=== PATIENT | male | born 1995 | race Caucasian/White ===

== ENCOUNTER 2019-05-21 11:54 | Outpatient (CLI) | payer SELFPAY ==
[2019-05-21 12:39] LABS: Basophils % 0.4 %; Eosinophils # 0.1 10^3/uL (0.0-0.8); Eosinophils % 0.9 %; Hematocrit 40.6 % (42.0-52.0); Lymphocytes # 0.6 10^3/uL (0.8-4.8); Lymphocytes % 10.5 %; Mean Corpuscular HGB Conc 34.5 g/dL (30.0-36.0); Mean Corpuscular Hemoglobin 30.9 pg (28.0-34.0); Mean Corpuscular Volume 89.6 fL (80-94); Mean Platelet Volume 9.5 fL (7.4-10.4); Monocytes # 0.9 10^3/uL (0.2-0.9); Monocytes % 15.7 %; Neutrophils # 3.9 10^3/uL (1.8-7.7); Neutrophils % 72.3 %; Nucleated Red Blood Cells % 0 %; Platelet Count 158 10^3/cmm (130-400); Red Blood Count 4.53 10^6/uL (4.1-5.3); Red Cell Distribution Width 12.2 % (12.1-15.1); White Blood Count 5.4 10^3/uL (4.0-10.0)
[2019-05-21 12:46] LABS: Alanine Aminotransferase 17 U/L (0-41); Albumin Level 5.1 g/dL (3.5-5.2); Alkaline Phosphatase 42 IU/L (40-130); Anion Gap 14.9 (5-19); Aspartate Amino Transferase 20 U/L (0-40); Blood Urea Nitrogen 10 mg/dL (6-20); Calcium 9.9 mg/dL (8.5-10.5); Carbon Dioxide 28 mmol/L (22-29); Chloride 97 mmol/L (98-107); Globulin 2.5 g/dL (1.3-4.6); Glomerular Filtration Rate 104.6 mL/min (90-130); Glucose 80 mg/dL (74-109); Lactate Dehydrogenase 146 U/L (135-225); Potassium 3.9 mmol/L (3.5-5.1); Sodium 136 mmol/L (136-145); Total Bilirubin 1.1 mg/dL (0.15-1.2); Total Protein 7.6 g/dL (6.6-8.7)
--- NOTE | 2019-05-21 22:36 | ONC FU_ITS ---
Dr. Rossi Patient Follow-Up Note Patient: Leland Sood Unit #: [id number]: 1995 Dicatated By: Rodolfo Rossi M.D.Date of Visit:May 21, 2019 Onc Med Follow-up/Prog Note Chief Complaint: Hodgkin's lymphoma. History of Present Illness: This is a 24 year-old man with classical Hodgkin lymphoma, nodular sclerosing subtype, stage IVB. On 12/18/2016 he had presented to the emergency room to the [facility] with swollen lymph nodes in his neck. He complained of pain in his neck and back, fatigue, and weight loss. He had first become aware of a small knot in his neck about a year earlier. The adenopathy had just been gradually progressing since then. He also complained of significant fatigue, and he also reported weight loss, night sweating, and severe itching. CT of the neck showed extensive bilateral lymphadenopathy throughout the neck and supraclavicular fossa with a small amount of peripheral edema. There was mild prominence of adenoids and tonsils. Salivary glands were noted to be mildly enlarged and heterogeneous. CT scans of the chest, abdomen, and pelvis showed additional AP window and subcarinal adenopathy measuring 1.8 cm. There was bilateral hilar adenopathy, right greater than left, with the largest conglomeration in the right hilar area measuring 3.8 x 2.8 cm. A rounded configuration of soft tissue in the anterior mediastinum measuring 2.4 x 2.8 cm was felt to be more consistent with adenopathy versus residual thymic tissue. Multiple small pulmonary nodules were noted bilaterally. The liver and spleen were both mildly enlarged, but without focal lesions. There was central retroperitoneal lymphadenopathy, the largest in the left periaortic area measuring 1.6 x 2.3 cm. Normal-sized mesenteric lymph nodes were present and normal sized inguinal lymph and iliac nodes were also noted. His CBC showed elevated white blood cell count at 21,600 with differential showing 76% neutrophils, 8% lymphocytes, and 9% monocytes. Hemoglobin decreased at 10.6 g and platelet count normal 372,000. The red cell indices were normal. Renal function was normal BUN 16 and creatinine 0.7 mg/dL. Albumin was slightly low at 3.1 g/dL. Bilirubin and liver enzymes were normal. He declined hospital admission. I was contacted by the emergency room physician to arrange outpatient follow-up. He was seen here initially on 12/24/2016, and subsequent to that visit he had surgical consultation with Dr. Nava. He underwent left cervical lymph node biopsy on 12/29/2016. Pathology was consistent with classical Hodgkin lymphoma, nodular sclerosing subtype. He underwent placement of Port-A-Cath venous access device and he then started treatment with ABVD chemotherapy, cycle 1 day 1 on 01/19/2017. Due to lack of insurance coverage, I was not able to obtain a pretreatment PET/CT. He began his ABVD chemotherapy on 01/19/2017. His initial management was complicated by severe pruritus and by severe pain in the neck and back. I did opt to initiate steroid therapy for the pruritus. The prednisone was subsequently tapered and discontinued, but in the meantime he did develop a follicular skin eruption with it. He had some nausea and fatigue with the chemotherapy, and he also had mild neuropathy. Overall, he had tolerated it pretty well, and he was able to continue his treatment on schedule with no dose reductions. He completed his cycle 6 day 15 treatment on 06/23/2017. At that point he still had small nodes palpable on the right of the neck. The significance of these was uncertain, but he also had required antibiotic therapy for dental abscess on the right side. He had no other residual lymphadenopathy. He had improvement in his clinical status during and following his treatment, though he still had very limited activity tolerance. Restaging PET/CT on 11/19/2017 showed tiny jugulodigastric lymph nodes measuring up to 1 cm in size which were FDG negative. There was no other significant adenopathy present. Activity in the anterior mediastinum soft tissue was felt to represent normal physiologic thymic activity. A repeat neck CT on 03/21/2018 showed significant improvement in the cervical chain and upper mediastinal lymphadenopathy compared to a 2016. There were still intermediate right cervical chain lymph nodes, the largest measuring 1.2 cm at level IIA. An anterior mediastinal soft tissue mass measured 3.8 x 1.6 cm, significantly improved and possibly representing residual or treated adenopathy versus thymic tissue. CT scans of the chest, abdomen, and pelvis on 03/24/2018 showed resolved pulmonary nodules and extensive lymphadenopathy compared to 12/18/2016 and resolved retroperitoneal lymphadenopathy. With those findings he continued on observation/expectant management. He had no significant prior medical illnesses, and he had no prior surgeries. He has a history of heavy alcohol use for a period of about a year. He quit drinking somewhere in the range of 1-2 years ago. In the past he also had some marijuana use and some meth use, but he denies ever having any IV drug use. He has history of smoking 1 pack of cigarettes daily. INTERIM HISTORY: He is seen for a followup visit. He has been feeling pretty good generally. Lately he has been sick with head and chest congestion. He has some associated cough, but it is nonproductive. He otherwise has good energy and activity tolerance. His ECOG score is 0. He has good appetite. He has gained a little weight. He has not had fever. He does complain that he sweats a lot at night. He does not complain of shortness of breath or chest pain. He is still smoking cigars. He has no GI or complaints. He does have some back pain, which is chronic. He has some headaches and he sometimes has dizziness. He has had episodes in which his fingers turn white and feel numb. This seems to occur randomly, and not necessarily in association with cold exposure. Medications: PROzac 2 Capsule (of 10 mg) Oral daily Allergies: Codeine Sulfate Review of Systems: Constitutional - His energy is good. He has normal activity. Appetite is good. He has gained weight. No fever. He has a lot of night sweating. ECOG score is 0, ENMT - He has sinus drainage. No mouth sores. No sore throat or difficulty swallowing, Hematologic/Lymphatic - No abnormal bruising or bleeding, Respiratory - No shortness of breath. He has a cough. He continues to smoke cigars. No pleuritic pain or hemoptysis, Cardiovascular - No angina pain. No palpitations, Gastrointestinal - No nausea or vomiting. No heartburn or acid reflux. No diarrhea or constipation. No blood in the stool or black stools, Genitourinary (M) - No dysuria or hematuria. No urinary frequency. No urgency or incontinence, Musculoskeletal - He still has some back pain, Neurologic - No headache or dizziness. His fingers sometimes turn white and feel numb, Psychiatric - He has depression. It is being managed adequately with Prozac. No insomnia. Vital Signs: Performed on May 21, 2019 14:03 Height - 68.00 in Weight - 144.8 lbs (HIGH) BSA - 1.78 sq.m BMI - 22.02 Temperature - 99.4 F (HIGH) Pulse - 112 /min (HIGH) Respiration - 18 /min BP - 112/58 mm(hg) O2 Sat - 100 % Pain - 4 Physical Examination: Constitutional - He looks good generally, Eyes - Sclerae nonicteric. Conjunctivae clear, ENMT - There are no other lesions noted in the oral cavity, Hematologic/Lymphatic - No cervical, clavicular, or axillary adenopathy noted, Respiratory - Lungs sound clear, Cardiovascular - Heart rhythm is regular. There is no murmur gallop noted, Abdomen - Soft. Liver and spleen are not enlarged. There is no abdominal mass or ascites noted. There is no inguinal adenopathy, Extremities - No edema, Neurologic - No focal neurologic deficits noted. Lab/Imaging: Test performed on May 21, 2019 12:05 LDH (Total) 146 U/L Sodium 136 mmol/L Potassium 3.9 mmol/L Chloride 97 mmol/L CO2 28 mmol/L Anion Gap 14.9 BUN 10 mg/dL Creatinine 0.9 mg/dL Cr Clearance (Est) 118.59 mL/min eGFR 104.6 mL/min Glucose 80 mg/dL Calcium 9.9 mg/dL Protein, Total 7.6 g/dL Albumin 5.1 g/dL Globulin 2.5 g/dL Bilirubin, Total 1.1 mg/dL ALT (SGPT) 17 U/L AST (SGOT) 20 U/L Alkaline Phosphatase 42 IU/L WBC 5.4 10 3/uL RBC 4.53 10 6/uL HGB 14.0 g/dL HCT 40.6 % MCV 89.6 fL MCH 30.9 pg MCHC 34.5 g/dL RDW 12.2 % Platelet Count 158 10 3/cmm MPV 9.5 fL Neutrophils 3.9 10 3/uL Lymphocytes 0.6 10 3/uL Monocytes 0.9 10 3/uL Eosinophils 0.1 10 3/uL Basophils 0.0 10 3/uL Neutrophil % 72.3 % Lymphocyte % 10.5 % Monocyte % 15.7 % Eosinophil % 0.9 % Basophils % 0.4 % Impression: 1. Patient with classical Hodgkin lymphoma, nodular sclerosing subtype. He did not had a complete staging evaluation. Based on the CT scans and clinical findings, his disease appeared to be stage IVB at initial diagnosis in November 2016. 2. He underwent treatment with 6 cycles of ABVD chemotherapy, from 01/19/2017 thru 06/23/2017. He appeared to have a complete response by restaging PET/CT in October 2017. 3. He has a history of alcohol abuse, currently inactive. His restaging CT scans in February 2018 showed no evidence of disease progression. Following completion of his chemotherapy he had joint pain, mainly in the hands, and he also had some Raynaud's type symptoms. The joint pain gradually resolved, but he has continued to have some Raynaud's symptoms. Overall, though, he has been doing well clinically with no evidence of recurrence of the Hodgkin's lymphoma. Plan: He remains on observation/expectant management. He will be scheduled for a follow-up visit in 6 months. Signed By: Rodolfo Rossi M.D. <<Signature on File>>
== END 2019-05-21 11:55 | disposition home or self-care (01) ==
LOC: ONCMED 12:00
PROVIDERS: Visit Provider Internal Medicine Medical Oncology
DX: Z08 Encounter for follow-up examination after completed treatment for malignant neoplasm (principal); Z85.71 Personal history of Hodgkin lymphoma; F10.21 Alcohol dependence, in remission; G89.29 Other chronic pain; M54.9 Dorsalgia, unspecified; F32.9 Major depressive disorder, single episode, unspecified; F17.210 Nicotine dependence, cigarettes, uncomplicated; Z92.21 Personal history of antineoplastic chemotherapy
CPT/HCPCS: 36415; 80053; 83615; 85025; G0463

== ENCOUNTER 2019-11-19 12:06 | Outpatient (CLI) | payer SELFPAY ==
[2019-11-19 12:36] LABS: Basophils % 0.6 %; Eosinophils # 0.3 10^3/uL (0.0-0.8); Hematocrit 41.7 % (42.0-52.0); Hemoglobin 13.9 g/dL (11.7-16.6); Lymphocytes # 2.6 10^3/uL (0.8-4.8); Lymphocytes % 37.6 %; Mean Corpuscular HGB Conc 33.3 g/dL (30.0-36.0); Mean Corpuscular Hemoglobin 30.3 pg (28.0-34.0); Monocytes # 0.5 10^3/uL (0.2-0.9); Monocytes % 7.1 %; Neutrophils % 50.6 %; Nucleated Red Blood Cells % 0 %; Platelet Count 225 10^3/cmm (130-400); Red Blood Count 4.58 10^6/uL (4.1-5.3); Red Cell Distribution Width 12.8 % (12.1-15.1); White Blood Count 6.9 10^3/uL (4.0-10.0)
[2019-11-19 12:50] LABS: Alanine Aminotransferase 17 U/L (0-41); Albumin Level 4.6 g/dL (3.5-5.2); Alkaline Phosphatase 40 IU/L (40-130); Anion Gap 12.3 (5-19); Aspartate Amino Transferase 17 U/L (0-40); Blood Urea Nitrogen 10 mg/dL (6-20); Calcium 9.3 mg/dL (8.5-10.5); Carbon Dioxide 30 mmol/L (22-29); Chloride 102 mmol/L (98-107); Globulin 2.4 g/dL (1.3-4.6); Glomerular Filtration Rate 139.8 mL/min (90-130); Glucose 72 mg/dL (65-115); Lactate Dehydrogenase 140 U/L (135-225); Osmolality Calculated 285 mOsm/kg (285-295); Potassium 4.3 mmol/L (3.5-5.1); Sodium 140 mmol/L (136-145); Total Bilirubin 0.9 mg/dL (0.15-1.2)
== END 2019-11-19 12:07 | disposition home or self-care (01) ==
LOC: ONCMED 12:13
PROVIDERS: Visit Provider Internal Medicine Medical Oncology
DX: C81.90 Hodgkin lymphoma, unspecified, unspecified site (principal)
CPT/HCPCS: 36415; 80053; 83615; 85025

== ENCOUNTER 2020-02-18 09:36 | Outpatient (CLI) | payer SELFPAY ==
--- NOTE | 2020-02-22 16:00 | ONC FU_ITS ---
Dr. Rossi Patient Follow-Up Note Patient: Leland Sood Unit #: [id number]: 1995 Dicatated By: Rodolfo Rossi M.D.Date of Visit:Feb 18, 2020 Onc Med Follow-up/Prog Note Chief Complaint: Hodgkin's lymphoma. History of Present Illness: This is a 25 year-old man with classical Hodgkin lymphoma, nodular sclerosing subtype, stage IVB. On 12/18/2016 he had presented to the emergency room to the [facility] with swollen lymph nodes in his neck. He complained of pain in his neck and back, fatigue, and weight loss. He had first become aware of a small knot in his neck about a year earlier. The adenopathy had just been gradually progressing since then. He also complained of significant fatigue, and he also reported weight loss, night sweating, and severe itching. CT of the neck showed extensive bilateral lymphadenopathy throughout the neck and supraclavicular fossa with a small amount of peripheral edema. There was mild prominence of adenoids and tonsils. Salivary glands were noted to be mildly enlarged and heterogeneous. CT scans of the chest, abdomen, and pelvis showed additional AP window and subcarinal adenopathy measuring 1.8 cm. There was bilateral hilar adenopathy, right greater than left, with the largest conglomeration in the right hilar area measuring 3.8 x 2.8 cm. A rounded configuration of soft tissue in the anterior mediastinum measuring 2.4 x 2.8 cm was felt to be more consistent with adenopathy versus residual thymic tissue. Multiple small pulmonary nodules were noted bilaterally. The liver and spleen were both mildly enlarged, but without focal lesions. There was central retroperitoneal lymphadenopathy, the largest in the left periaortic area measuring 1.6 x 2.3 cm. Normal-sized mesenteric lymph nodes were present and normal sized inguinal lymph and iliac nodes were also noted. His CBC showed elevated white blood cell count at 21,600 with differential showing 76% neutrophils, 8% lymphocytes, and 9% monocytes. Hemoglobin decreased at 10.6 g and platelet count normal 372,000. The red cell indices were normal. Renal function was normal BUN 16 and creatinine 0.7 mg/dL. Albumin was slightly low at 3.1 g/dL. Bilirubin and liver enzymes were normal. He declined hospital admission. I was contacted by the emergency room physician to arrange outpatient follow-up. He was seen here initially on 12/24/2016, and subsequent to that visit he had surgical consultation with Dr. Nava. He underwent left cervical lymph node biopsy on 12/29/2016. Pathology was consistent with classical Hodgkin lymphoma, nodular sclerosing subtype. He underwent placement of Port-A-Cath venous access device and he then started treatment with ABVD chemotherapy, cycle 1 day 1 on 01/19/2017. Due to lack of insurance coverage, I was not able to obtain a pretreatment PET/CT. He began his ABVD chemotherapy on 01/19/2017. His initial management was complicated by severe pruritus and by severe pain in the neck and back. I did opt to initiate steroid therapy for the pruritus. The prednisone was subsequently tapered and discontinued, but in the meantime he did develop a follicular skin eruption with it. He had some nausea and fatigue with the chemotherapy, and he also had mild neuropathy. Overall, he had tolerated it pretty well, and he was able to continue his treatment on schedule with no dose reductions. He completed his cycle 6 day 15 treatment on 06/23/2017. At that point he still had small nodes palpable on the right of the neck. The significance of these was uncertain, but he also had required antibiotic therapy for dental abscess on the right side. He had no other residual lymphadenopathy. He had improvement in his clinical status during and following his treatment, though he still had very limited activity tolerance. Restaging PET/CT on 11/19/2017 showed tiny jugulodigastric lymph nodes measuring up to 1 cm in size which were FDG negative. There was no other significant adenopathy present. Activity in the anterior mediastinum soft tissue was felt to represent normal physiologic thymic activity. A repeat neck CT on 03/21/2018 showed significant improvement in the cervical chain and upper mediastinal lymphadenopathy compared to a 2016. There were still intermediate right cervical chain lymph nodes, the largest measuring 1.2 cm at level IIA. An anterior mediastinal soft tissue mass measured 3.8 x 1.6 cm, significantly improved and possibly representing residual or treated adenopathy versus thymic tissue. CT scans of the chest, abdomen, and pelvis on 03/24/2018 showed resolved pulmonary nodules and extensive lymphadenopathy compared to 12/18/2016 and resolved retroperitoneal lymphadenopathy. With those findings he continued on observation/expectant management. He had no significant prior medical illnesses, and he had no prior surgeries. He has a history of heavy alcohol use for a period of about a year. He quit drinking somewhere in the range of 1-2 years ago. In the past he also had some marijuana use and some meth use, but he denies ever having any IV drug use. He has history of smoking 1 pack of cigarettes daily. INTERIM HISTORY: He is seen for a followup visit. He had recently been seen at an urgent care in the [place] area with development of right inguinal lymphadenopathy. He was treated with antibiotic and then scheduled for follow-up here. He has had complete resolution of the enlarged inguinal lymph node, so this apparently was a reactive process. He says at the time he had a bad case of athletes foot. He is not aware of any other potential source for it. He has otherwise been feeling okay. He has pretty good energy. He is working. ECOG score is 0. He has good appetite. He has no fever or night sweats. He does have a cough, attributable to smoking cigars. He does not complain of shortness of breath or chest pain. He has no GI or complaints. He has some joint pain, not bad. He still has the Raynaud's symptoms with cold exposure. Medications: He has not been on any other prescription medication. Allergies: Codeine Sulfate Vital Signs: Performed on Feb 18, 2020 09:54 Height - 68.00 in Weight - 138.6 lbs (LOW) BSA - 1.75 sq.m BMI - 21.07 Temperature - 98.2 F (LOW) Pulse - 110 /min (HIGH) Respiration - 18 /min BP - 142/82 mm(hg) (HIGH) O2 Sat - 96 % Pain - 0 Physical Examination: Constitutional - He looks good generally, Eyes - Sclerae nonicteric. Conjunctivae clear, ENMT - No lesions noted in the oral cavity, Hematologic/Lymphatic - No cervical, clavicular, or axillary adenopathy noted, Respiratory - Lungs sound clear, Cardiovascular - Heart rhythm is regular. There is no murmur gallop noted, Abdomen - Soft. Liver and spleen are not enlarged. There is no abdominal mass or ascites noted. There are just small inguinal lymph nodes bilaterally which are not clinically significant, Extremities - No edema. Lab/Imaging: Test performed on Nov 19, 2019 12:20 LDH (Total) 140 U/L Sodium 140 mmol/L Potassium 4.3 mmol/L Chloride 102 mmol/L CO2 30 mmol/L Anion Gap 12.3 BUN 10 mg/dL Creatinine 0.7 mg/dL Cr Clearance (Est) 151.17 mL/min eGFR 139.8 mL/min Glucose 72 mg/dL Calcium 9.3 mg/dL Osmolality - Calculated 285 mOsm/kg Protein, Total 7.0 g/dL Albumin 4.6 g/dL Globulin 2.4 g/dL Bilirubin, Total 0.9 mg/dL ALT (SGPT) 17 U/L AST (SGOT) 17 U/L Alkaline Phosphatase 40 IU/L WBC 6.9 10 3/uL RBC 4.58 10 6/uL HGB 13.9 g/dL HCT 41.7 % MCV 91.0 fL MCH 30.3 pg MCHC 33.3 g/dL RDW 12.8 % Platelet Count 225 10 3/cmm MPV 9.0 fL Neutrophils 3.50 10 3/uL Lymphocytes 2.6 10 3/uL Monocytes 0.5 10 3/uL Eosinophils 0.3 10 3/uL Basophils 0.0 10 3/uL Neutrophil % 50.6 % Lymphocyte % 37.6 % Monocyte % 7.1 % Eosinophil % 4.0 % Basophils % 0.6 % NRBC % 0 % Impression: 1. Patient with classical Hodgkin lymphoma, nodular sclerosing subtype. He did not had a complete staging evaluation. Based on the CT scans and clinical findings, his disease appeared to be stage IVB at initial diagnosis in November 2016. 2. He underwent treatment with 6 cycles of ABVD chemotherapy, from 01/19/2017 thru 06/23/2017. He appeared to have a complete response by restaging PET/CT in October 2017. 3. He has a history of alcohol abuse, currently inactive. His restaging CT scans in February 2018 showed no evidence of disease progression. Following completion of his chemotherapy he had joint pain, mainly in the hands, and he also had some Raynaud's type symptoms. The joint pain gradually resolved, but he continued to have some Raynaud's symptoms. He had recently presented with right inguinal lymphadenopathy. It has resolved following empiric antibiotic therapy. The exact underlying cause for this was not determined, but it appears to have been a reactive process. Thus far there appears to be no evidence for recurrence of the Hodgkin's lymphoma. Plan: He remains on observation/expectant management. I will see him again in 6 months, or sooner as needed. Signed By: Rodolfo Rossi M.D. <<Signature on File>>
== END 2020-02-18 09:37 | disposition home or self-care (01) ==
LOC: ONCMED 09:38
PROVIDERS: Visit Provider Internal Medicine Medical Oncology
DX: Z85.71 Personal history of Hodgkin lymphoma (principal)
CPT/HCPCS: 99212